=== PATIENT | female | born 1970 | race Caucasian/White ===

== ENCOUNTER 2020-09-07 09:09 | Outpatient (CLI) | payer OTHER, SELFPAY ==
[2020-09-07 10:06] LABS: CRP < 0.5 mg/dL (<1.0); Creatine Kinase 64 U/L (30-135); Uric Acid 3.9 mg/dL (2.5-7.5)
[2020-09-07 10:11] LABS: Erythrocyte Sedimentation Rate 22 mm/hr (0-20)
[2020-09-07 10:21] LABS: Complement C3 112 mg/dL (88-165); Immunoglobulin A 133 mg/dL (70-400); Rheumatoid Factor < 8.6 IU/ML (<12)
[2020-09-07 10:49] LABS: Hepatitis B Surface Antigen Negative (Negative)
[2020-09-07 11:07] LABS: Hepatitis C Virus Antibody Negative (Negative)
[2020-09-09 15:16] LABS: Anti Centromere B Antibody <1.0
[2020-09-10 10:22] LABS: Scleroderma 70 Antibody <1.0
[2020-09-10 16:54] LABS: Chromatin Antibody <1.0; RNP Antibodies <1.0; SS-A <1.0; SS-B <1.0
[2020-09-11 23:14] LABS: Complement Total CH50 >60 U/mL (31-60)
[2020-09-13 10:49] LABS: Histone Antibody <1.0 U (<1.0)
[2020-09-15 10:27] LABS: Anti Cyclic Citrullinated Pept <16 Units (<20)
== END 2020-09-07 09:10 | disposition home or self-care (01) ==
PROVIDERS: PCP Family Medicine; Visit Provider Nurse Practitioner
DX: M25.50 Pain in unspecified joint (principal)
CPT/HCPCS: 36415; 82550; 82784; 83516; 84550; 85652; 86038; 86140; 86160; 86162; 86200; 86225; 86235; 86430; 86803; 87340

== ENCOUNTER → 2021-01-04 10:43 | Outpatient (CLI) | payer OTHER, SELFPAY ==
--- NOTE | ~2021-01-04 | MM_ITS ---
EXAMINATION: MM scrn manuel implant BI w [facility] HISTORY: Screening mammogram TECHNIQUE: Craniocaudal and mediolateral oblique 3-D tomosynthesis images with implant displacement a nd synthetic 2-D images were generated. Craniocaudal and mediolateral oblique views of the breasts wi thout implant displacement were obtained using full field digital mammography. CAD analysis was submi tted and interpreted. COMPARISON: 11/05/2018, 12/12/2011 BREAST PARENCHYMAL COMPOSITION: There are scattered areas of fibroglandular density. FINDINGS: There is no evidence of suspicious mass, calcification, or architectural distortion to sugg est malignancy in either breast. There has been no suspicious interval change. IMPRESSION: 1. No mammographic evidence of malignancy. 2. Recommend routine screening mammography in one year. BI-RADS Category 1: Negative Reviewed, dictated and finalized at location A.
== END ==
PROVIDERS: PCP Family Medicine; Visit Provider Obstetrics & Gynecology
DX: Z12.31 Encounter for screening mammogram for malignant neoplasm of breast (principal)
CPT/HCPCS: 77063; 77067

== ENCOUNTER 2021-05-23 09:27 | Outpatient (CLI) | payer OTHER, SELFPAY ==
[2021-05-23 09:55] LABS: Basophils Absolute Auto 0.1 K/mm3 (0.0-0.1); Basophils Percent Auto 0.7 % (0.2-1.2); Eosinophils Absolute Auto 0.1 K/mm3 (0-0.3); Eosinophils Percent Auto 0.8 % (0-4.4); Hematocrit 43.8 % (37.0-47.0); Hemoglobin 14.7 g/dL (12.0-15.0); Immature Granulocyte Absolute 0.03 K/mm3 (0.00-0.031); Immature Granulocyte Percent A 0.4 % (0-0.5); Lymphocytes Percent Auto 23.7 % (18.3-44.2); Mean Corpuscular HGB Conc 33.6 g/dl (32-36); Mean Corpuscular Hemoglobin 34.2 pg (26-34); Mean Corpuscular Volume 101.9 fl (80-100); Mean Platelet Volume 10.2 fl (7.4-10.4); Monocytes Absolute Auto 0.4 K/mm3 (0.1-0.6); Monocytes Percent Auto 5.5 % (2.6-8.5); Neutrophils Absolute Auto 5.2 K/mm3 (1.3-6.7); Neutrophils Percent Auto 68.9 % (45.5-73.1); Platelet Count Result 193 k/mm3 (150-375); Red Cell Distribution Width 12.5 % (11.5-14.5); White Blood Count 7.6 K/mm3 (4.5-10.0)
[2021-05-23 10:09] LABS: Alanine Aminotransferase 29 U/L (4-35); Albumin Level 4.4 g/dL (3.5-5.1); Alkaline Phosphatase 114 U/L (38-126); Anion Gap 7 mmol/L (8-16); Aspartate Amino Transferase 32 U/L (14-36); Bilirubin,Total 0.4 mg/dL (0.2-1.3); Blood Urea Nitrogen 9 mg/dL (7-17); Calcium 9.5 mg/dL (8.4-10.2); Carbon Dioxide 25 mmol/L (22-30); Chloride 106 mmol/L (98-107); Cholesterol 195 mg/dL (0-200); Estimated Glomerular Filt Rate > 60; Glucose 108 mg/dL (65-110); HDL Direct 54 mg/dL; Potassium 4.1 mmol/L (3.4-5.0); Sodium 138 mmol/L (137-145); Triglycerides 145 mg/dL (<150)
[2021-05-23 10:20] LABS: LDL Cholesterol Direct 102 mg/dL
[2021-05-23 10:40] LABS: Total Triiodothyronine (T3) 1.14 NG/ML (0.97-1.69)
[2021-05-23 11:09] LABS: Add Urine Microscopic? YES; Appearance Urine Clear (Clear); Bilirubin Urine Negative (Negative); Blood Urine Negative (Negative); Color Urine Yellow (Yellow); Glucose Urine UA Negative (Negative); Ketones Urine Negative (Negative); Leukocyte Esterase Ur Negative LEU/UL (NEGATIVE); Mucus Urine Rare /lpf; Nitrate Urine Negative (Negative); Protein Urine Negative (Negative); RBC Urine 0-2 /hpf (0-2); Specific Grav Ur 1.013 (1.001-1.035); Squamous Epithelial Cell Urine Occasional /hpf (Few); Urobilinogen Urine Negative mg/dL (<2.0); WBC Urine 0-3 /hpf (0-3)
[2021-05-23 11:11] LABS: Free T4 Free Thyroxine 1.03 ng/mL (0.78-2.19); Vitamin D 25 Hydroxy 48.9 ng/mL
== END 2021-05-23 09:28 | disposition home or self-care (01) ==
PROVIDERS: PCP Family Medicine; Visit Provider Nurse Practitioner
DX: Z00.00 Encounter for general adult medical examination without abnormal findings (principal); D64.9 Anemia, unspecified; E78.2 Mixed hyperlipidemia; M25.30 Other instability, unspecified joint; E55.9 Vitamin D deficiency, unspecified; Z13.0 Encounter for screening for diseases of the blood and blood-forming organs and certain disorders involving the immune mechanism; Z13.220 Encounter for screening for lipoid disorders; Z13.29 Encounter for screening for other suspected endocrine disorder
CPT/HCPCS: 36415; 80053; 80061; 81001; 82306; 84439; 84443; 84480; 85025

== ENCOUNTER 2021-08-08 07:36 | Outpatient (CLI) | payer OTHER, SELFPAY ==
[2021-08-08 08:26] LABS: CRP < 0.5 mg/dL (<1.0)
[2021-08-08 08:27] LABS: Erythrocyte Sedimentation Rate 16 mm/hr (0-20)
== END 2021-08-08 07:37 | disposition home or self-care (01) ==
LOC: ANHLAB 07:39
PROVIDERS: PCP Family Medicine; Visit Provider Family Medicine
DX: U09.9 Post COVID-19 condition, unspecified (principal); M25.50 Pain in unspecified joint
CPT/HCPCS: 36415; 85652; 86140

== ENCOUNTER → 2021-11-24 10:32 | Outpatient (CLI) | payer OTHER, SELFPAY ==
--- NOTE | ~2021-11-24 | XR_ITS ---
EXAMINATION: XR chest 2V 11/24/2021 10:46 INDICATION: Cough for 3 weeks PROCEDURE: 2 view chest COMPARISON: No prior studies for comparison. FINDINGS: The lungs are clear. The cardiomediastinal silhouette is within normal limits. There are no pleural effusions. There is no pneumothorax suspected. There are breast implants. There are calc ified granulomas bilaterally. IMPRESSION: 1: NO ACUTE CARDIOPULMONARY DISEASE. Reviewed, dictated and finalized at location A.
== END ==
PROVIDERS: PCP Family Medicine; Visit Provider Family Medicine
DX: R05.9 Cough, unspecified (principal)
CPT/HCPCS: 71046

== ENCOUNTER → 2022-02-13 09:38 | Outpatient (CLI) | payer OTHER, SELFPAY ==
--- NOTE | ~2022-02-13 | XR_ITS ---
EXAMINATION: HAND-LUIS A ARTHRITIS 3+VIEWS DATE: 02/13/2022 14:55 INDICATION: Unspecified osteoarthritis TECHNIQUE: Posteroanterior, lateral, and oblique views of the left and of the right hands as well as a ballcatchers view of both hands were obtained. COMPARISON: None. FINDINGS: Alignment is normal at the bilateral hands and wrists. No fracture. Tiny subarticular cystlike change s with surrounding sclerosis along the ulnar side of the proximal articular surface of the right ramya te in location typical for ulnocarpal impaction although ulnar variance appears neutral. Minimal to m ild polyarticular osteoarthritis at several of the bilateral interphalangeal joints. Small corticated likely loose osteochondral body versus heterotopic ossicle along the dorsal margin of the left lunat e on the lateral projection. No erosions to suggest inflammatory arthritis. Soft tissues are unremark able. IMPRESSION: 1. Minimal to mild polyarticular osteoarthritis at several of the interphalangeal joints of both hand s. 2. Mild cystic and sclerotic change at the ulnar side of the proximal articular surface of the right lunate which can be seen with ulnocarpal impaction although ulnar variance is neutral. Reviewed, dictated and finalized at location A. IMPRESSION: 1. Minimal to mild polyarticular osteoarthritis at several of the interphalange al joints of both hands. 2. Mild cystic and sclerotic change at the ulnar side of the proximal articular surface of the right lunate which can be seen with ulnocarpal impaction althou gh ulnar variance is neutral.
--- NOTE | ~2022-02-13 | XR_ITS ---
EXAMINATION: XR lumbar spine min 4V, XR sacroiliac joints min 3V DATE: 02/13/2022 14:55 INDICATION: Unspecified osteoarthritis, unspecified site. TECHNIQUE: 1. AP of the lumbar spine, and cone-down lateral view of the lumbosacral junction were obtained. 2. AP and left and right oblique views of the bilateral sacroiliac joints were obtained. COMPARISON: None. FINDINGS: Likely segmentation anomaly at L4-L5 with small L4-L5 disc space both in thickness as well as with de creased AP diameter of the vertebral bodies at the level of the disc space. Provided with hypoplasia right-sided posterior elements of L5 with unfused spinous process. This results in approximately 10 d egree levocurvature between L3 and L5 with mild compensatory thoracolumbar dextrocurvature. Multileve l minimal to mild disc height loss and mild degenerative endplate changes in the remainder of the lum bar spine and visualized lower thoracic spine. Moderate lower lumbar facet osteoarthritis. Sacral arc hes are intact. Mild bilateral sacroiliac osteoarthritis. No erosions to suggest inflammatory sacroil iitis. Lung bases are clear.. IMPRESSION: 1. 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 2. Mild bilateral sacroiliac osteoarthritis without erosions to suggest inflammatory cellulitis. Reviewed, dictated and finalized at location A. IMPRESSION: 1. 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 2. Mild bilateral sacroiliac osteoarthritis without erosions to suggest inflamm atory cellulitis.
== END ==
PROVIDERS: PCP Family Medicine; Visit Provider Internal Medicine
DX: M79.10 Myalgia, unspecified site (principal); Z79.899 Other long term (current) drug therapy; M19.042 Primary osteoarthritis, left hand; M19.041 Primary osteoarthritis, right hand; M47.818 Spondylosis without myelopathy or radiculopathy, sacral and sacrococcygeal region; Z71.89 Other specified counseling
CPT/HCPCS: 72110; 72202; 73130

== ENCOUNTER 2022-03-14 11:25 | Outpatient (CLI) | payer OTHER, SELFPAY ==
[2022-03-18 04:25] LABS: Thyroid Peroxidase Antibodies <1 IU/mL (<9)
== END 2022-03-14 11:26 | disposition home or self-care (01) ==
LOC: ANHLAB 11:27
PROVIDERS: PCP Family Medicine; Visit Provider Internal Medicine
DX: M79.10 Myalgia, unspecified site (principal); Z71.89 Other specified counseling; Z51.81 Encounter for therapeutic drug level monitoring; Z79.899 Other long term (current) drug therapy; M19.90 Unspecified osteoarthritis, unspecified site
CPT/HCPCS: 36415; 86376

== ENCOUNTER 2022-05-09 09:03 | Outpatient (CLI) | payer OTHER, SELFPAY ==
--- NOTE | ~2022-05-09 | XR_ITS ---
XR_CERV2-3V_CR DATE: 05/09/2022 09:22 INDICATION: Chronic right neck TECHNIQUE: AP, open-mouth, lateral views COMPARISON: None FINDINGS: There is straightening of the cervical spine, likely due to muscle spasm. There is minimal anterolisthesis at C2-3 and C3-4 and C4-5. The interspaces are preserved at these le vels. There is mild to moderate loss of interspace height at C5-6. C1 and C2 are normally aligned and the odontoid process is intact. No fracture or dislocation or lock ed facet. There is mild degenerative spurring at the C6-7 uncovertebral joints. IMPRESSION: Cervical spondylosis Mild cervical spondylosis Reviewed, dictated and finalized at Location [facility]. Reviewed, dictated and finalized at location A. [employer]
[2022-05-15 07:02] LABS: FSH 36.2 mIU/mL (***); LH 36.4 mIU/mL (***)
[2022-05-15 15:35] LABS: Progesterone 0.2 ng/mL (***)
[2022-05-18 22:12] LABS: Estrogen 137.2 pg/mL
== END 2022-05-09 09:04 | disposition home or self-care (01) ==
LOC: ANHBWCLAB 09:05
PROVIDERS: PCP Family Medicine; Visit Provider Family Medicine
DX: M54.2 Cervicalgia (principal); M25.50 Pain in unspecified joint; N95.9 Unspecified menopausal and perimenopausal disorder; M43.02 Spondylolysis, cervical region
CPT/HCPCS: 36415; 72040; 82672; 83001; 83002; 84144